=== PATIENT | male | born 1955 | race Caucasian/White ===

== ENCOUNTER 2022-12-21 08:52 | Outpatient (RCR) | payer MEDICARE, SELFPAY ==
--- NOTE | 2022-12-21 11:04 | HMH.PTOPEV ---
PT Outpatient Evaluation Rehab PT Outpatient Evaluation Start: 12/21/22 09:01 Freq: Status: Active Protocol: Document 12/21/22 09:01 MARISSA (Rec: 12/21/22 11:04 MARISSA [id number]) E-signed By Gricelda Wiggins, PT Outpatient Therapy Subjective History Subjective History Pt is a 67 y/o male who reports chronic low back pain with recent worsening of pain in the last year. Pt denies injury or trauma to cause worsening of symptoms. Pt also reports bilateral R>L leg pain and tingling that radiates to the posterior and anterior knees for years. Pt reports he has bilateral foot tingling from diabetes. 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 Pt reports he had lumbar spine xrays 4-5 months ago at [place] but is unsure of the results. Pt reports the doctor at [place] recommended surgery but he is not interested. Pt reports he is taking Loratabs which does help a little with pain. Pt reports pain is aggravated by prolonged sitting, walking <5 minutes, going up/down stairs, bending over and lifting. Pt denies changes in b/b function , n/v, fever or night sweats. Pt reports he was adjusted at the chiropractor 2 weeks ago which caused worsening of pain . Pt reports he does get some relief of pain by lying on his right side, leaning to the left when seated and is able to walk a little further with a grocery cart. Medical History: Diabetes with neuropathy, High blood pressure, High cholesterol, COPD, Psoriasis, Heart stent placed 4 years ago New diagnosis of cancer in past 12 No months? Chief Complaint Pain,Paresthesia Symptom Type Sharp,Stabbing,Shooting Symptoms Relieved By Rest/Positioning,Ice Symptoms Aggravated By Sitting,Standing,Physical Activity,Walking,Lifting Prior Functional Limitations None Current Functional Limitations Lifting,Housework,Sleeping, Standing,Sitting,Squatting, Walking,Stairs Symptom Description Constant but Variable Level of pain today (0-10) 8 Pain scale - at its best (0-10) 6 Pain scale - at its worst (0-10) 10 Lumbopelvic Eval Posture Lumbar Spine Posture Standing Position Decreased Lordosis Assistive device Assistive Devices None / NA Gait Observation General Gait Pattern Observation Antalgic Gait,Wide Based Gait Palapation tenderness bilateral lumbar spinal tenderness Yes paraspinal tenderness Yes buttock tenderness Yes Lumbar/Sacral Palpation Findings Tenderness Lumbar/Sacral Palpation Overall Comment 4/4 TTP Accessory Movement L-spine Vertebrae Accessory Movements Central P/A [place] that Elicit Symptoms L2 bilateral L3 bilateral L4 bilateral L5 bilateral S1 bilateral Range of Motion Lumbar Spine Active Flexion Range of 50 Motion (degrees) Lumbar Spine Active Extension Range of 5 Motion (degrees) Left Lumbar Spine Lateral Flexion Active 10 Range of Motion (degrees) Right Lumbar Spine Lateral Flexion 8 Active Range of Motion (degrees) Manual Muscle Test Bilateral Knee Extension Strength Grade 5 Normal Knee Flexion Strength Grade 4 Good Hip Flexion Strength Grade 4- Good- Hip Abduction Strength Grade 4- Good- Hip Adduction Strength Grade 4 Good Hip Extension Strength Grade 4- Good- Ankle Dorsiflexion Strength Grade 5 Normal DTR Rt Patellar 1+ Lt Patellar 1+ Rt Gastroc/Soleus 1+ Lt Gastroc/Soleus 1+ Altered Sensation Bilateral Comment equal and intact to light touch sensation bilaterally Special Tests Sciatic Nerve Tension Test Positive Left,Positive Right Unilateral Straight Leg Raise (Lasegue) Positive Left,Positive Right Test Oswestry Index Section 1 Pain Intensity The pain comes and goes and is severe Section 2 Personal Care (Washing,Dresing) increase the pain, but I manage not to change my way of doing it Section 3 Lifting lifting heavy weights off the floor, but I can manage light to medium Section 4 Walking I cannot walk more than 1/4 mile without increasing pain Section 5 Sitting Pain prevents me from sitting for more than 10 minutes Section 6 Standing I cannot stand more than 10 minutes without increasing pain Section 7 Sleeping Because of pain, my normal nights sleep is less than 2 hours sleep Section 8 Social Life Pain has restricted my social life and I do not go out often Section 9 Traveling I get extra pain while traveling which compels me to seek alternate fo Section 10 Changing Degreee of Pain My pain is neither getting better or worse Score and Risk Level Oswestry Sc 35 Oswestry Risk Level Completely Disabled Outpatient Therapy Assessment Impairments Problems/Impairmments Palpation Tenderness,Impaired Range of Motion,Impaired Strength,Impaired Walking, Impaired Standing,Impaired Sitting,Impaired Lifting, Impaired Household Care, Impaired Stair Climbing, Impaired Squatting,Impaired Bending,Subjective C/O Pain, Impaired Self Care/Self Management Prognosis Rehab Potential Fair Comment Treat and recommend MRI due to severity of pain. Barriers to progress include severe chronic pain with limited exercise tolerance demonstrated during the initial evaluation Clinical Impression Consistent with Diagnosis Yes Short Term Goals Number of Weeks 3 Decreased Palpation Tenderness Yes: 3/4 TTP of lumbar SP/PS Increase Range of Motion Yes: Improve lumbar flexion AROM to at least 55, ext to 8- 10 Patient to be Ind w/ HEP Yes Alf Goals Number of Weeks 6 Increase Range of Motion Yes: Improve lumbar flexion AROM to at least 70, ext to 10 , LF to 12-15 Increase Strength Yes: Improve BLE MMT to 4+/5 to assist with function Increase Ability to Walk Yes: 5' or more with pain 6/10 or less Increase Ability to Stand Yes: 5' or more with pain 6/10 or less Decrease Subjective C/O Pain Yes: Improve pain at worst to 6/10 to improve overall QOL Improve Self Care/Self Management Yes: Improve PA score to at least 20 to improve overall QOL Outpatient Therapy Plan of Care Treatment Plan May Include Therapeutic Exercise Including Home Yes Exercise Program Manual Therapy Techniques Yes Neuromuscular Re-education Yes Therapeutic Activities to Return to Yes Previous Functional/Work Level ADL/Self Care Education Yes Mechanical Traction Yes Dry Needling Yes Thermal Modalities Yes Electrical Stimulation Yes Ultrasound/Phonophoresis Yes Iontophoresis Yes Massage Yes Group Therapy for Medicare Yes Eval/Re-Eval Yes Frequency Times per week 2 Duration Number of Weeks 4-6 Addendums This patient is a candidate for social No or vocational rehab? Patient/Guardian verbally acknowledges Yes understanding of treatment program and consents to further treatment? Patient/Guardian verbally acknowledges Yes understanding of diagnosis, prognosis and goals for treatment? Eval Complexity PT Charges 67851 - Moderate Complexity Shoulder/Elbow Eval Shoulder Objective Measurements Elbow Objective Measurements PHYSICIAN CERTIFICATION: I certify the specified therapy services for Terrance Ley are required, authorized, and reviewed every 30 days.
== END 2022-12-21 10:00 | disposition home or self-care (01) ==
LOC: PT 08:52
PROVIDERS: PCP Emergency Medicine; Visit Provider Emergency Medicine
DX: M54.16 Radiculopathy, lumbar region (principal)
CPT/HCPCS: 97163

== ENCOUNTER → 2023-01-06 23:15 | Outpatient (CLI) | payer MEDICARE, SELFPAY ==
[2023-01-06 19:07] LABS: Barbiturates Screen,Urine Negative ng/ml (<200)
[2023-01-06 19:08] LABS: Amphetamine/Metha Screen,Urine Negative ng/ml (<1000); Basophils % 0.5 % (0.1-2.0); Eosinophils # 0.1 K/mm3 (0.0-0.4); Eosinophils % 1.6 % (0.1-12.0); Hematocrit 47.7 % (42.0-52.0); Hemoglobin 16.3 g/dL (14.1-18.0); Lymphocytes # 1.8 K/mm3 (0.7-4.5); Lymphocytes % 27.4 % (10-50); Mean Corpuscular HGB Conc 34.1 g/dL (31.8-35.4); Mean Corpuscular Hemoglobin 30.9 pg (27.0-31.2); Mean Corpuscular Volume 90.4 fl (80-94); Mean Platelet Volume 9.1 fl (7.4-10.4); Monocytes # 0.9 K/mm3 (0.1-1.0); Monocytes % 14.3 % (1.7-9.3); Neutrophils # 3.6 K/mm3 (1.8-7.8); Neutrophils % 56.2 % (37.0-80.0); Platelet Count 215 K/mm3 (142-424); Red Blood Count 5.28 M/mm3 (4.60-6.20); Red Cell Distribution Width 14.9 % (11.5-17.5); White Blood Count 6.5 K/mm3 (4.8-10.8)
[2023-01-06 19:11] LABS: Benzodiazepines Screen,Urine Negative ng/ml (<200); Cannabinoid Screen,Urine Negative ng/ml (<50)
[2023-01-06 19:12] LABS: Cocaine Screen,Urine Negative ng/ml (<300)
[2023-01-06 19:13] LABS: Methadone Screen,Urine Negative ng/ml (<300); Opiate Screen,Urine Positive ng/ml (<300)
[2023-01-06 19:14] LABS: Phencyclidine Screen,Urine Negative ng/ml (<25)
[2023-01-06 19:20] LABS: Alanine Aminotransferase 18 U/L (12-78); Albumin Level 4.5 g/dl (3.5-5.0); Albumin/Globulin Ratio 1.5 (1.1-1.8); Alkaline Phosphatase 105 U/L (38-126); Aspartate Amino Transferase 29 U/L (17-59); Bilirubin,Total 0.5 mg/dl (0.2-1.3); Blood Urea Nitrogen 12 mg/dl (9-20); Calcium 8.9 mg/dl (8.4-10.2); Carbon Dioxide 27 mmol/L (22.0-30.0); Chloride 102 mmol/L (98-107); Chol/HDL Ratio 4.9 (1-3.5); Cholesterol 98 mg/dl (140-200); Estimated Glomerular Filt Rate 96 ml/min (>60); GFR (African American) 116 ML/MIN (>60); Glucose 92 mg/dl (74-100); HDL Cholesterol 20 mg/dl (40-60); Sodium 141 mmol/L (136-145); Total Protein,Serum 7.5 g/dl (6.3-8.2); Triglycerides 182 mg/dl (30-150); VLDL Cholesterol 36 mg/dL (0-40)
[2023-01-06 19:32] LABS: Direct LDL Cholesterol 54.63 mg/dL (100-129)
[2023-01-06 19:39] LABS: T4 (Thyroxine) 11.3 ug/dl (5.53-11.0)
[2023-01-06 19:41] LABS: 25-OH Vitamin D, Total 47.4 ng/mL (30-100)
[2023-01-06 19:52] LABS: Prostate Specific Ag Screen 6.3 ng/ml (0.0-4.0); Thyroid Stimulating Hormone 1.41 uIU/mL (0.465-4.68)
== END ==
LOC: LAB.DROPOF 23:16
PROVIDERS: PCP Emergency Medicine; Visit Provider Emergency Medicine
DX: E55.9 Vitamin D deficiency, unspecified (principal); E11.9 Type 2 diabetes mellitus without complications; M54.16 Radiculopathy, lumbar region; I25.10 Atherosclerotic heart disease of native coronary artery without angina pectoris; Z12.5 Encounter for screening for malignant neoplasm of prostate
CPT/HCPCS: 80053; 80061; 80305; 82306; 83036; 84436; 84443; 85025; G0103

== ENCOUNTER → 2023-01-06 23:16 | Outpatient (CLI) | payer MEDICARE, SELFPAY | PROVIDERS: PCP Emergency Medicine; Visit Provider Emergency Medicine | DX: M54.16 Radiculopathy, lumbar region (principal) ==

== ENCOUNTER → 2023-02-03 11:08 | Outpatient (CLI) | payer MEDICARE, SELFPAY ==
--- NOTE | 2023-02-03 11:08 | CT_ITS ---
FINAL REPORT TECHNIQUE: Axial images were obtained from the lung apex to the mid abdomen by computed tomography. This study was performed with techniques to keep radiation doses as low as reasonably achievable (ALARA). Individualized dose reduction techniques using automated exposure control or adjustment of mA and/or kV according to the patient's size were employed. CLINICAL HISTORY: lung cancer screening, 2.5PPD FOR 50 YEARS, CURRENT SMOKER FINDINGS: CHEST CT LOW DOSE CTDI vol (mGy): 2.90 DLP (mGy-cm): 102.90 There is prominent coronary artery calcification. There is no axillary adenopathy. There is no hilar or mediastinal adenopathy. The heart is normal in size. There is no pericardial or pleural effusion. Lung window images demonstrate no suspicious infiltrate or nodule. Limited images of the upper abdomen are unremarkable. IMPRESSION: Lung RADS category 1. Recommend 12 month follow-up low-dose chest CT. Modifier S: Prominent coronary artery calcification. Reviewed, Interpreted and Dictated by Megan Lopez MD Transcribed by Cahnel Sylvester Authenticated and [facility]
== END ==
PROVIDERS: PCP Emergency Medicine; Visit Provider Emergency Medicine
DX: F17.210 Nicotine dependence, cigarettes, uncomplicated (principal); Z12.2 Encounter for screening for malignant neoplasm of respiratory organs
CPT/HCPCS: 71271

== ENCOUNTER → 2023-03-02 09:20 | Outpatient (CLI) | payer MEDICARE, SELFPAY ==
[2023-03-02 23:03] LABS: Barbiturates Screen,Urine Negative ng/ml (<200); Benzodiazepines Screen,Urine Negative ng/ml (<200)
[2023-03-02 23:04] LABS: Amphetamine/Metha Screen,Urine Negative ng/ml (<1000)
[2023-03-02 23:05] LABS: Cocaine Screen,Urine Negative ng/ml (<300); Methadone Screen,Urine Negative ng/ml (<300)
[2023-03-02 23:06] LABS: Cannabinoid Screen,Urine Negative ng/ml (<50)
[2023-03-02 23:07] LABS: Opiate Screen,Urine Positive ng/ml (<300); Phencyclidine Screen,Urine Negative ng/ml (<25)
== END ==
PROVIDERS: PCP Internal Medicine; Visit Provider Internal Medicine
DX: M54.16 Radiculopathy, lumbar region (principal)
CPT/HCPCS: 80305